=== PATIENT | female | born 2000 | race Caucasian/White ===

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

== ENCOUNTER 2020-02-15 10:59 | Outpatient (CLI) | payer BC, SELFPAY ==
[2020-02-15 16:01] LABS: Abs Immature Grans 0.01 10^3/uL (0.0-0.06); Absolute Basophil Count 0.01 10^3/uL (0.0-0.2); Absolute Eosinophil Count 0.22 10^3/uL (0.0-0.7); Absolute Lymphocyte Count 1.66 10^3/uL (1.2-3.4); Absolute Monocyte Count 0.41 10^3/uL (0.1-0.8); Absolute Neutrophil Count 3.24 10^3/uL (1.2-6.7); Basophils % 0.2; HCT 44.6 % (36.0-46.0); HGB 14.4 g/dL (11.2-15.7); Immature Grans % 0.2; Lymphocytes % 29.9; MCH 29.6 pg (27.0-33.0); MCHC 32.3 % (32.0-36.0); MCV 91.6 fL (80-95); MPV 9.4 fL (8.0-11.0); Monocytes % 7.4; Neutrophils % 58.3; Nucleated RBC 0 %; Platelet Count 300 10^3/uL (130-400); RBC 4.87 10^6/uL (3.93-5.22); RDW-SD 40.2 fL; WBC 5.55 10^3/uL (4.4-10.8)
[2020-02-15 16:55] LABS: ALT 21 U/L (14-59); AST 14 U/L (15-37); Albumin 4.1 g/dL (3.4-5.0); Alkaline Phosphatase 56 U/L (46-116); Anion Gap 5.9 mmol/L (3-11); BUN 10 mg/dL (7-18); Bilirubin, Total 0.2 mg/dL (0.2-1.0); CO2 28.1 mmol/L (21.0-32.0); CREATININE 0.72 mg/dL (0.55-1.02); Calcium 8.7 mg/dL (8.5-10.1); Chloride 105 mmol/L (98-107); Glucose 59 mg/dL (74-106); Potassium 3.8 mmol/L (3.5-5.1); Sodium 139 mmol/L (136-145); TSH 1.91 uIU/mL (0.52-4.13); Total Protein 7.7 g/dL (6.4-8.2); Vitamin B12 481 pg/mL (193-986)
[2020-02-15 17:11] LABS: Iron 45 ug/dL (50-170); Total Iron Binding Capacity 352 ug/dL (250-450); Transferrin Sat 13 % (15-50)
[2020-02-15 17:15] LABS: FREE T4 0.93 ng/dL (0.78-1.34)
[2020-02-17 09:45] LABS: Antistrep-O Titer 337 IU/mL (0 - 530)
[2020-02-17 12:20] LABS: EBNA IgG Negative (Negative); EBV Interpretation (See Note); VCA IgG Negative (Negative); VCA IgM Negative (Negative)
[2020-02-18 11:48] LABS: 1,25-Dihydroxyvitamin D 24 pg/mL (18-78)
== END 2020-02-15 11:19 ==
PROVIDERS: PCP Pediatrics; Visit Provider Pediatrics
DX: R42 Dizziness and giddiness (principal)
CPT/HCPCS: 36415; 80053; 82607; 82652; 83540; 83550; 84439; 84443; 85025; 86060; 86664; 86665

== ENCOUNTER 2020-02-29 14:41 | Outpatient (CLI) | payer BC, SELFPAY ==
[2020-02-29 15:21] LABS: Mono Screening Negative (Negative)
== END 2020-02-29 15:01 ==
PROVIDERS: PCP Pediatrics; Visit Provider Otolaryngology Otolaryngology/Facial Plastic Surgery
DX: R07.0 Pain in throat (principal)
CPT/HCPCS: 36415; 86308

== ENCOUNTER 2022-02-26 18:58 | Outpatient (REF) | payer BC, SELFPAY | END 2022-02-26 18:59 | disposition home or self-care (01) | LOC: LBN 18:58 | PROVIDERS: Visit Provider Otolaryngology | DX: J35.01 Chronic tonsillitis (principal) | CPT/HCPCS: 87070 ==

== ENCOUNTER 2022-04-09 07:10 | Day surgery (SDC) | payer BC, SELFPAY ==
[2022-04-09] VITALS (7 sets, daily range): BP systolic 88–129; BP diastolic 48–92; PULSE 68–87; RESP 13–18; TEMP 36.5–36.6; O2SAT 97–100; BMI 25.7
[2022-04-09] MEDS: Normal Saline 1,000 ML 30 ML IV (07:49)
--- NOTE | 2022-04-09 08:39 | W.ANESPRE ---
General Info Date of Service Date Performed: 04/09/22 Height: 5 ft 9 in Weight: 79 kg Body Mass Index (BMI): 25.7 Surgical Procedure: Operation Date: 04/09/22 08:55 Proposed Procedure Side Surgeon p Tonsillectomy & Possible Adenoidectomy Dave Olvera MD Meds Allergies and Home Medications Allergies Allergy/AdvReac Type Severity Reaction Status Date / Time shrimp Allergy Mild Hives Verified 04/09/22 07:32 Home Medication Medication Instructions Recorded albuterol sulfate 90 mcg/actuation 2 puff inhalation Q4H PRN ##1 06/28/20 aerosol inhaler (ProAir HFA) glycopyrrolate 1 mg tablet 1 mg PO BID #60 tabs 09/01/20 fluticasone propionate 110 2 puff inhalation BID #12 grams 03/09/21 mcg/actuation HFA aerosol inhaler (Flovent HFA) losartan 25 mg tablet See Rx Instructions .Route 10/20/21 .COMPLEX #30 tabs inhalational spacing device #1 ea 11/01/21 (Aerochamber MV spacer) Current Visit Medications: Current Medications Generic Name Dose Route Start Last Admin Trade Name Freq PRN Reason Stop Dose Admin Sodium Chloride 1,000 mls @ 0 mls/hr 04/09/22 06:00 04/09/22 07:49 Saline 1000ml Bag IV 04/09/22 23:59 30 mls/hr INFUSION KIRA Administration KVO Cefazolin Sodium/Dextrose 2 gm in 50 mls @ 100 mls/hr 04/09/22 06:00 Ancef Duplex IVPB 05/09/22 23:59 PREOP KIRA Tranexamic Acid 1,000 mg/ 60 mls @ 360 mls/hr 04/09/22 06:00 Sodium Chloride IVPB 04/09/22 23:59 TODAY KIRA IV Miscellaneous Supplies 1 each 04/09/22 06:00 Iv Access IV 05/09/22 23:59 DIRECTED KIRA Sodium Chloride 0 ml 04/09/22 06:00 Normal Saline Flush 10 Ml Syr IV 05/09/22 23:59 PRN PRN Sodium Chloride 0 ml 04/09/22 06:00 Normal Saline 10 Ml Vial IJ 05/09/22 23:59 DIRECTED PRN Sterile Water 0 ml 04/09/22 06:00 Water,Injection,Sterile 10 Ml Vial IJ 05/09/22 23:59 DIRECTED PRN PFSH Active Problems Active Problems: Problem Status Onset Code 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 History of migraine headaches Z86.69 History of MRSA infection Z86.14 Abscess L02.91 Frequent headaches R51.9 Mild persistent asthma J45.30 Elevated blood pressure reading R03.0 Depression F32.9 ADPKD (autosomal dominant polycystic kidney disease) 09/09/15 Q61.2 Medical History Medical History Asthma Chronic tonsillitis Depressed mood Globus sensation (07/10/17) Intermittent asthma Polycystic kidney disease, autosomal dominant Proteinuria Surgical History Surgical History [place] teeth removed Tobacco Smoking/Tobacco Use Status: Never Passive smoking exposure: No Alcohol Alcohol Intake: current Alcohol intake frequency: a few times a week Substance Use Substance use: Never Substance use type: does not use Vital Signs and Lab Results Vital Signs Most Recent Vital Signs in EMR: Most Recent Vital Signs Temp Pulse Resp BP Pulse Ox 36.5 C 87 14 123/91 H 99 04/09/22 07:10 04/09/22 07:10 04/09/22 07:10 04/09/22 07:10 04/09/22 07:10 Point of Care Results Point of Care Results: POC- Test(urine) Negative 04/09/22 07:47 Lab Results Blood Type / Crossmatch: No Data to Display Complete Blood Count: No Data to Display Complete Metabolic Panel: No Data to Display Liver Function Panel: No Data to Display Coagulation Panel: No Data to Display Cardiac Panel: No Data to Display Arterial Blood Gas: No Data to Display Venous Blood Gas: No Data to Display Pancreas Panel: No Data to Display Thyroid Panel: No Data to Display Infectious Disease: No Data to Display Blood Cultures: No Data to Display Toxicology Panel: No Data to Display Panel: No Data to Display Anesthesia Assessment and Plan Anesthesia History Personal History: No History of Anesthesia Complications Family History: No Family History of Anesthesia Complications Exercise Tolerance Exercise Tolerance: Metabolic Equivalents>4 Pertinent Negatives Pertinent Negatives: No Symptoms of GERD and No Major Cardiovascular Symptoms or Complaints Cardiac & Pulmonary Exam Cardiac Exam: Normal S1/S2 Heart Sounds Pulmonary Exam: Clear Bilateral Breath Sounds Implantable Cardiac Device Does patient have a Pacemaker or an ICD?: No Airway Exam Known Difficult Airway: No Mallampati Class: 1 Mouth Opening: Normal (> 3cm) Thyromental Distance: Greater than 3 cm Neck Range of Motion: Full ROM Neck Circumference: Normal Teeth Condition: Normal Dentition ASA Classification ASA Score: ASA 2 Emergency Case?: No NPO Status NPO Status: NPO Clears >2 hours, Solids >8 hours Status Status: Negative HCG Anesthesia Plan Resuscitation Status: Full Code Anesthesia Technique: General Anesthesia Airway Planned: Endotracheal Tube Monitors Used: Standard Monitors
[2022-04-09] MEDS: ceFAZolin 2 GM/50 ML BAG IVPB (09:07)
--- NOTE | 2022-04-09 09:20 | TONSIL_PTH ---
PATIENT: Sofia Roger LOC: [facility] U#:[id number] AGE/SX: 21/F ROOM: RE04/09/[address]: Dave Olvera MD : 2000 BED: DIS: 04/09/2022 SPEC #: [id number] RECD: 04/09/22 13:19 STATUS: BRANDEE REItalia #: [id number] BOZENA: 04/09/22 09:[address]: Dave Olvera DEPT: Surgical Specimen RECD BY: Sherrie Rodriguez Tissues: 1 - TONSIL AGE 17 & OVER 2 - TONSIL AGE 17 & OVER Procedures: GROSS AND MICRO LEVEL 3 Comments: [id number]
[2022-04-09] MEDS: Bupivacaine 0.5% Pres-Free W/EPI 30 ML VIAL (09:23)
--- NOTE | 2022-04-09 09:43 | PDOC.DSDIS_ITS ---
Date of service: 04/09/22 Time of Service: 09:43 Discharge Plan Discharge Details Reason For Visit: Tonsillectomy Attending Provider: Dave Olvera Home Meds and New Rx's Prescriptions: No Action albuterol sulfate [ProAir HFA] 90 mcg/actuation HFA aerosol inhaler 2 puff Inhalation Q4H PRN Qty: 1 3RF Rx Instructions: 2 puffs with spacer every 4hr as needed for cough/wheeze (DME) Aerochamber MV Spacer See Dose Instructions .ROUTE .MEDSUPPLY Qty: 1 0RF Dose Instruction: As directed Rx Instructions: As directed, use with MDI. Any brand spacer OK glycopyrrolate 1 mg tablet 1 mg PO BID Qty: 60 1RF Rx Instructions: take one tablet twice a day fluticasone propionate [Flovent HFA] 110 mcg/actuation HFA aerosol inhaler 2 puff IH BID Qty: 12 3RF Rx Instructions: take 2 puffs twice a day every day losartan 25 mg tablet See Rx Instructions .ROUTE .COMPLEX Qty: 30 0RF Dose Instruction: take 1 tablet by mouth once daily at bedtime Rx Instructions: take 1 tablet by mouth once daily at bedtime Discharge Instructions Additional Instructions: My cell phone number is [phone]. Please call with any concerns or problems. If you are unable to reach me, please call 911 or proceed to the emergency room if you deem this an emergency Stand Alone Forms: ENT- T&A Instr. Wade Referrals: Dave Olvera MD [ [facility] STAFF PHYSICIAN] - (1 month, please call for appointment prior to patient's departure)
[2022-04-09] MEDS: ACETAMINOPHEN 1,000 MG/100 ML BTL 400 MG IVPB (09:45)
--- NOTE | 2022-04-09 09:45 | ROE_ITS ---
Date of service: 04/09/22 Time of Service: 09:45 Operative Note Operative Note DATE OF PROCEDURE: 04/09/22 PRE-OP DIAGNOSIS: Chronic tonsillitis POST-OP DIAGNOSIS: same PROCEDURE: Tonsillectomy SURGEON: Dave Olvera ANESTHESIA TYPE: General LMA/ETT Refer to Anesthesia Record ESTIMATED BLOOD LOSS: 20 COMPLICATIONS: None Patient was transported to: PACU Patient's condition: stable Indications: Patient with the above problems. Options were explained to the patient regarding further management. She elected to undergo the above procedure. H&P was reviewed. Consent was reviewed. Risks of narcotics including addiction and respiratory depression were reviewed. There have been no change in her physical since I saw her last. Findings: 2+ tonsils with copious cryptic debris, adenoids atrophic, no debris, no inflammation, palate intact to inspection and palpation Procedure Description: After obtaining an adequate level of general endotracheal anesthesia the patient was positioned in supine position and prepped and draped in appropriate fashion. Jesus-Armando mouthgag was carefully introduced into the oral cavity and opened reveal the soft and hard palate which were examined. Adenoidal bed was examined revealing no significant residual adenoid. The posterior choana were widely patent bilaterally. Each tonsil was pulled medially and posteriorly and 0.5% Marcaine with 1/100,000 epinephrine was injected into the submucosal spaces around the tonsil. A 12 blade was then used to incise mucosa along the superior edge of the tonsil and a Jean elevator used to disarticulate the tonsil from the superior tonsillar fossa. The tonsil was then stripped from the tonsillar fossa down to the inferior pole using a Leonard blade and then a tonsillar snare used to amputate the tonsil from the tonsillar fossa. Once been accomplished bilaterally electrocautery suction catheter set on 15 W coagulation was used to achieve relative hemostasis within the tonsillar beds. Valsalva failed to induce further bleeding. Jesus Armando mouthgag was relaxed and reopened re vealing no further bleeding. The Jesus-Armando mouthgag was then relaxed and removed and the patient was then awakened and extubated by anesthesia and taken to recovery room in stable condition. I was present throughout the entire case.
--- NOTE | 2022-04-09 11:30 | W.ANESPOSTOP ---
Postoperative Evaluation Date, Time and Location Date Performed: 04/09/22 Time Performed: 10:55 Patient Location: Day Surgery Unit Vital Signs Most Recent Imported Vital Signs: Most Recent Vital Signs Temp Pulse Resp BP Pulse Ox 36.6 C 68 18 128/80 100 04/09/22 10:45 04/09/22 10:45 04/09/22 10:45 04/09/22 10:45 04/09/22 10:45 Pain Score Most Recent Pain Score: Most Recent Pain Score Pain Level 4 04/09/22 10:45 Assessment Mental Status: Awake (Alert & Oriented to Patient Baseline) Airway and Respiratory Function: Patent airway with normal (patient baseline) respiratory exam Cardiovascular Function: Hemodynamically Stable Hydration Status: Adequately Hydrated Nausea & Vomiting: No Nausea or Vomiting Pain: Pain is tolerable per patient Peripheral Nerve Block: Patient did not receive a nerve block
== END 2022-04-09 11:21 | disposition home or self-care (01) ==
PROVIDERS: Visit Provider Otolaryngology
PROC: (CPT 42826; principal; 2022-04-09 08:45)
DX: J35.01 Chronic tonsillitis (principal)
CPT/HCPCS: 42826; 81025; 88304; J0131; J0690; J1100; J2250; J2405; J2704